=== PATIENT | female | born 1975 | race Two or more races ===

== ENCOUNTER 2016-12-18 03:22 | Emergency (ER) | payer SELFPAY ==
[2016-12-18 05:08] LABS: ABSOLUTE BASOPHILS # (AUTO) 0.1 10^3/uL (0.0-0.2); ABSOLUTE LYMPHOCYTES (AUTO) 1.4 10^3/uL (0.5-4.7); ABSOLUTE MONOCYTES (AUTO) 0.5 10^3/uL (0.1-1.4); ABSOLUTE NEUT (AUTO) 8.4 10^3/uL (1.7-8.2); BASOPHILS % (AUTO) 0.7 % (0-2); EOSINOPHILS % (AUTO) 0.2 % (0-6); HEMATOCRIT 40.4 % (36.0-47.0); HEMOGLOBIN 14.2 g/dL (12.0-15.5); HGB HCT DIFFERENCE 2.2; LYMPHOCYTES % (AUTO) 13.5 % (13-45); MEAN CORPUSCULAR HEMOGLOBIN 31.4 pg (27.0-33.4); MEAN CORPUSCULAR HGB CONC 35.1 g/dL (32.0-36.0); MEAN CORPUSCULAR VOLUME 89 fl (80-97); MONOCYTES % (AUTO) 4.8 % (3-13); RED BLOOD COUNT 4.52 10^6/uL (3.72-5.28); RED CELL DISTRIBUTION WIDTH 12.6 % (11.5-14.0); SEGMENTED NEUTROPHILS % (AUTO) 80.8 % (42-78); WHITE BLOOD COUNT 10.4 10^3/uL (4.0-10.5)
[2016-12-18 05:18] LABS: ALANINE AMINOTRANSFERASE 47 U/L (9-52); ALBUMIN 4.5 g/dL (3.5-5.0); ALKALINE PHOSPHATASE 58 U/L (38-126); ANION GAP 17 (5-19); ASPARTATE AMINO TRANSFERASE 32 U/L (14-36); BILIRUBIN,DIRECT 0.1 mg/dL (0.0-0.4); BILIRUBIN,TOTAL 0.5 mg/dL (0.2-1.3); BLOOD UREA NITROGEN 9 mg/dL (7-20); CALCIUM 9.8 mg/dL (8.4-10.2); CARBON DIOXIDE 26 mmol/L (22-30); CHLORIDE 100 mmol/L (98-107); CREATININE RESULT 0.63 mg/dL (0.52-1.25); GLUCOSE 123 mg/dL (75-110); LIPASE 213.5 U/L (23-300); SODIUM 143.2 mmol/L (137-145); TOTAL PROTEIN 7.3 g/dL (6.3-8.2)
[2016-12-18 05:19] LABS: POTASSIUM 3.6 mmol/L (3.6-5.0)
[2016-12-18 05:39] LABS: APPEARANCE,URINE SLIGHTLY-CLOUDY; BILIRUBIN,URINE NEGATIVE (NEGATIVE); GLUCOSE, URINE NEGATIVE (NEGATIVE); KETONES,URINE NEGATIVE (NEGATIVE); LEUKOCYTE ESTERASE,URINE TRACE (NEGATIVE); NITRITE,URINE NEGATIVE (NEGATIVE); PROTEIN,URINE 100 mg/dL (NEGATIVE); UROBILINOGEN,URINE NEGATIVE mg/dL (<2.0)
--- NOTE | 2016-12-18 06:16 | ER Document Report ---
ED GI/ - General Time seen by provider: 06:55 Mode of Arrival: Ambulatory Information source: Patient TRAVEL OUTSIDE OF THE [place] IN LAST 30 DAYS: No - HPI Patient complains to provider of: Abdominal pain Onset: Yesterday - last night 23:00 Location: Low back - bilaterally, Suprapubic Vaginal bleeding (Compared to normal period): Heavier LMP: 12/17/16 Similar symptoms previously: No Recently seen / treated by doctor: No <RUSTAM HARRISON - Last Filed: 12/18/16 10:06> <AMBER CROWELL - Last Filed: 12/19/16 05:25> - General Chief Complaint: Abdominal Pain Stated Complaint: ABDOMINAL PAIN Notes: Patient is a 41 year old female presenting to the ED for lower abdominal pain and dysuria since 23:00 last night. Patient states her abdominal pain radiates into her back. Patient denies any history of kidney stones but does have a history of gall stones. Patient recently had a UTI about 2 months ago. Patient states she is currently on her menstrual cycle now. Patient has some change in flow in her menstrual periods. Patient has a history of appendectomy, Caesarian section, gall stones, and pancreatic cysts. Patient states her primary care physician is in [place] and she also has an SENIOR DATA ANALYST in [place] that she sees. Patient is allergic to penicillin. (RUSTAM HARRISON) - Related Data Allergies/Adverse Reactions: Penicillins Allergy (Verified 12/18/16 03:55) Past Medical History - General Information source: Patient - Social History Smoking Status: Unknown if Ever Smoked Family History: None Patient has suicidal ideation: No Patient has homicidal ideation: No GI Medical History: Reports: Other - gallstones, pancreatic cyst Past Surgical History: Reports: Hx Appendectomy, Hx Section <RUSTAM HARRISON - Last Filed: 12/18/16 10:06> Review of Systems - Review of Systems Constitutional: No symptoms reported EENT: No symptoms reported Cardiovascular: No symptoms reported Respiratory: No symptoms reported Gastrointestinal: See HPI, Abdominal pain Genitourinary: No symptoms reported Female Genitourinary: See HPI, Last menstrual period - 12/17/16, Heavy/abnormal periods Musculoskeletal: See HPI Skin: No symptoms reported Hematologic/Lymphatic: No symptoms reported Neurological/Psychological: No symptoms reported -: Yes All other systems reviewed and negative <RUSTAM HARRISON - Last Filed: 12/18/16 10:06> Physical Exam - Vital signs Interpretation: Normal - General General appearance: Appears well, Alert In distress: Mild - HEENT Head: Normocephalic, Atraumatic Eyes: Normal Pupils: PERRL Mucous membranes: Moist - Respiratory Respiratory status: No respiratory distress Chest status: Nontender Breath sounds: Normal Chest palpation: Normal - Cardiovascular Rhythm: Regular Heart sounds: Normal auscultation Murmur: No - Abdominal Inspection: Normal Distension: No distension Bowel sounds: Normal Tenderness: Nontender Organomegaly: No organomegaly - Back Back: Normal, Nontender - Extremities General upper extremity: Normal inspection, Normal ROM, Normal strength General lower extremity: Normal inspection, Normal ROM, Normal strength - Neurological Neuro grossly intact: Yes Cognition: Normal Orientation: AAOx4 Radha Coma Scale Eye Opening: Spontaneous [place] Coma Scale Verbal: Oriented [place] Coma Scale Motor: Obeys Commands [place] Coma Scale Total: 15 Speech: Normal - Psychological Associated symptoms: Normal affect, Normal mood - Skin Skin Temperature: Warm Skin Moisture: Dry <MARGARETALEXANDRA MACIASINE - Last Filed: 12/18/16 10:06> Course - Laboratory Result Diagrams: 12/18/16 04:47 12/18/16 04:47 <RUSTAM HARRISON - Last Filed: 12/18/16 10:06> - Laboratory Result Diagrams: 12/18/16 04:47 12/18/16 04:47 <AMBER CROWELL - Last Filed: 12/19/16 05:25> - Re-evaluation Re-evalutation: 12/18/16 08:59 presents emergency from a suprapubic pain on her menses. Says she's been bleeding heavier than usual. Denies a chance of . Says it would go around into the back area not associated with nausea vomiting or diarrhea. She is well-appearing nontoxic on examination no acute abdominal findings on serial exam. No white count elevation labs are stable straight catheter urine is negative for infection. Patient has had her appendix removed. Discussed reasons for ed return sooner 12/19/16 05:24 (AMBER CROWELL) - Vital Signs Vital signs: Temp Pulse Resp BP Pulse Ox 97.8 F 78 16 132/74 H 100 12/18/16 09:14 12/18/16 09:17 12/18/16 09:14 12/18/16 09:14 12/18/16 09:17 - Laboratory Laboratory results interpreted by me: 12/18/16 12/18/16 12/18/16 04:47 04:47 04:47 Seg Neutrophils % 80.8 H Absolute Neutrophils 8.4 H Glucose 123 H Urine Protein 100 H Urine Blood LARGE H Ur Leukocyte Esterase TRACE H Urine Ascorbic Acid 40 H 12/18/16 07:08 Seg Neutrophils % Absolute Neutrophils Glucose Urine Protein Urine Blood MODERATE H Ur Leukocyte Esterase Urine Ascorbic Acid Discharge <RUSTAM HARRISON - Last Filed: 12/18/16 10:06> <AMBER CROWELL - Last Filed: 12/19/16 05:25> - Discharge Clinical Impression: Lower abdominal pain Condition: Stable Disposition: HOME, SELF-CARE Instructions: Abdominal Pain ([facility]) Additional Instructions: Abdominal Pain There are many causes of abdominal pain. Pain can mean a serious problem requiring surgery (such as appendicitis). It can also be an innocent problem that goes away on its own (such as a viral infection). Often, time must pass to determine the cause of pain. The physician does not feel that hospitalization is necessary, at present. Things may change within the next 24 hours. Call the doctor or come back for re- examination if any problems occur, such as: (1) Pain that becomes more severe, steady, or becomes concentrated in one specific area. Also, pain that is more severe with movement or coughing. (2) Vomiting that persists or becomes more frequent. (3) Blood in the vomitus, urine, or bowel movements. Blood in the stool may have a tarry or black appearance. (4) Shaking chills or fever greater than 100 degrees F. (5) The abdomen becomes more distended or swollen. (6) Bowel movements cease. (7) Failure to improve as expected. Referrals: [facility] [Provider Group] - Follow up tomorrow (Call in a.m. for appointment to be rechecked in 12-24 hours return for increasing worsening or new symptoms) Scribe Attestation: 12/18/16 08:58 I personally performed the services described in the documentation reviewed the documentation recorded by my scribe in my presence and it accurately and completely records my words and actions (AMBER CROWELL) Scribe Documentation - Scribe Written by Scribe:: Rustam Harrison 12/18/16 10:28 acting as scribe for :: Rustam <RUSTAM HARRISON - Last Filed: 12/18/16 10:06>
[2016-12-18 08:06] LABS: APPEARANCE,URINE CLEAR; BILIRUBIN,URINE NEGATIVE (NEGATIVE); GLUCOSE, URINE NEGATIVE (NEGATIVE); KETONES,URINE NEGATIVE (NEGATIVE); LEUKOCYTE ESTERASE,URINE NEGATIVE (NEGATIVE); NITRITE,URINE NEGATIVE (NEGATIVE); PROTEIN,URINE NEGATIVE (NEGATIVE); URINE SPECIFIC GRAVITY 1.001; UROBILINOGEN,URINE NEGATIVE mg/dL (<2.0)
[2016-12-18 09:17] VITALS: BP 132/74
== END 2016-12-18 09:17 | disposition home or self-care (01) ==
LOC: ER 03:22
DX: R10.30 Lower abdominal pain, unspecified (principal); R30.0 Dysuria; M54.9 Dorsalgia, unspecified
CPT/HCPCS: 36415; 51701; 80048; 80076; 81001; 81025; 83690; 85025; 99284